=== PATIENT | female | born 1935 | race Caucasian/White ===

== ENCOUNTER 2017-01-29 09:41 | Emergency (ER) | payer OTHER ==
[2017-01-29] MEDS ORDERED: NS 1,000 ML IV ONE (09:53)
--- NOTE | 2017-01-29 09:56 | EDPHY ---
H & P Time Seen by Provider: 01/29/17 09:42 HPI/ROS: CHIEF COMPLAINT: Confusion HISTORY OF PRESENT ILLNESS: The patient is an 81-year-old female who comes from [facility] independent living. Around 4 o'clock in the morning she slid off of her bed and sustained a small bump to her head. Fire department responded. She was at her normal mental status and had no complaints at the time other complaining her bottom was sore from sitting on the ground for an hour. She was assisted back to bed and had no further complaints. This morning however staff and family feel the patient is less cheerful than usual and possibly confused. She was treated for urinary tract infection 2 months ago with Keflex but does not currently have any urinary symptoms. No nausea vomiting. No headache. The patient tells me she is asymptomatic. Paramedics state that she was A&O x4 for them but became somewhat flustered during transport which they attributed to anxiety. REVIEW OF SYSTEMS: Constitutional: denies: chills, fever, recent illness, recent injury EENTM: denies: blurred vision, double vision, nose congestion Respiratory: denies: cough, shortness of breath Cardiac: denies: chest pain, irregular heart rate, lightheadedness, palpitations Gastrointestinal/Abdominal: denies: abdominal pain, diarrhea, nausea, vomiting, blood streaked stools Genitourinary: denies: dysuria, frequency, hematuria, pain Musculoskeletal: denies: joint pain, muscle pain Skin: denies: lesions, rash, jaundice, bruising Neurological: See HPI denies: headache, numbness, paresthesia, tingling, dizziness, weakness Hematologic/Lymphatic: denies: blood clots, easy bleeding, easy bruising Immunologic/allergic: denies: HIV/AIDS, transplant EXAM: GENERAL: Well-appearing, well-nourished and in no acute distress. HEAD: Very small bump to the right side of her head. No bleeding or laceration. EYES: Pupils equal round and reactive to light, extraocular movements intact, sclera anicteric, conjunctiva are normal. ENT: TMs normal, nares patent, oropharynx clear without exudates. Moist mucous membranes. NECK: Normal range of motion, supple without lymphadenopathy or JVD. LUNGS: Breath sounds clear to auscultation bilaterally and equal. No wheezes rales or rhonchi. HEART: Regular rate and rhythm without murmurs, rubs or gallops. ABDOMEN: Soft, nontender, normoactive bowel sounds. No guarding, no rebound. No masses appreciated. BACK: No CVA tenderness, no spinal tenderness, step-offs or deformities EXTREMITIES: Normal range of motion, no pitting or edema. No clubbing or cyanosis. NEUROLOGICAL: Cranial nerves II through XII grossly intact. Normal speech, normal gait. 5/5 strength, normal movement in all extremities, normal sensation PSYCH: Normal mood, normal affect. SKIN: Warm, dry, normal turgor, no visible rashes or lesions. Source: Patient Exam Limitations: No limitations - Medical/Surgical History Hx Asthma: No Hx Chronic Respiratory Disease: No Hx Diabetes: No Hx Cardiac Disease: No Hx Renal Disease: No Hx Cirrhosis: No Hx Alcoholism: No - Family History Significant Family History: No pertinent family hx - Social History Smoking Status: Never smoked Alcohol Use: Sober Drug Use: None Constitutional: Initial Vital Signs Temperature (C) 36.7 C 01/29/17 09:50 Heart Rate 91 01/29/17 09:50 Respiratory Rate 16 01/29/17 09:50 Blood Pressure 144/70 H 01/29/17 09:50 O2 Sat (%) 94 01/29/17 09:50 O2 Delivery Mode Room Air O2 (L/minute) 2 Allergies/Adverse Reactions: adhesive Allergy (Verified 01/29/17 10:09) Home Medications: Medication Instructions Recorded SIMVASTATIN 01/29/17 Zoloft 100mg (*) 01/29/17 Medical Decision Making - Diagnostics Imaging Results: Imaging Impressions Head CT 01/29/17 09:54 Impression: 1. No acute intracranial findings. 2. Diffuse cerebral atrophy with periventricular and subcortical low attenuation consistent with chronic microvascular ischemic gliosis. Findings discussed with Sylvain Tran on 01/29/2017 at 10:37 a.m. Imaging: Discussed imaging studies w/ call center dispatcher Radiologist ED Course/Re-evaluation: 10:45 a.m. we discussed the CT and lab results thus far. Patient's son and daughter are at the bedside and state that she is acting normally and at baseline currently. We are awaiting urinary sample. According to the family the patient finished antibiotics for urinary tract infection last week. 12:12 p.m. the patient's urinalysis is unremarkable. She is feeling normal. Her family states she is baseline. Will discharge her at this time. Discussed indications for returning. Differential Diagnosis: Partial list of the Differential diagnosis considered include but were not limited to; urinary tract infection, fall, intracranial injury and although unlikely based on the history and physical exam, I also considered fracture, neck injury, acute coronary disease, seizure. I discussed these differential diagnoses and the plan with the patient as well as the usual and expected course. The patient understands that the diagnosis is provisional and that in medicine we are not always correct and that further workup is often warranted. Usual and customary warnings were given. All of the patient's questions were answered. The patient was instructed to return to the emergency department should the symptoms at all worsen or return, otherwise to followup with the physician as we discussed. - Data Points Laboratory Results: Laboratory Results 01/29/17 09:45 01/29/17 09:45 01/29/17 01/29/17 01/29/17 11:10 09:45 09:45 WBC 11.94 10^3/uL H 10^3/uL (3.80-9.50) RBC 4.68 10^6/uL 10^6/uL (4.18-5.33) Hgb 14.3 g/dL g/dL (12.6-16.3) Hct 42.8 % % (38.0-47.0) MCV 91.5 fL fL (81.5-99.8) MCH 30.6 pg pg (27.9-34.1) MCHC 33.4 g/dL g/dL (32.4-36.7) RDW 13.3 % % (11.5-15.2) Plt Count 297 10^3/uL 10^3/uL (150-400) MPV 9.4 fL fL (8.7-11.7) Neut % (Auto) 94.2 % H % (39.3-74.2) Lymph % (Auto) 2.3 % L % (15.0-45.0) Grant % (Auto) 2.9 % L % (4.5-13.0) Eos % (Auto) 0.1 % L % (0.6-7.6) Baso % (Auto) 0.1 % L % (0.3-1.7) Nucleat RBC Rel Count 0.0 % % (0.0-0.2) Absolute Neuts (auto) 11.25 10^3/uL H 10^3/uL (1.70-6.50) Absolute Lymphs (auto) 0.27 10^3/uL L 10^3/uL (1.00-3.00) Absolute Monos (auto) 0.35 10^3/uL 10^3/uL (0.30-0.80) Absolute Eos (auto) 0.01 10^3/uL L 10^3/uL (0.03-0.40) Absolute Basos (auto) 0.01 10^3/uL L 10^3/uL (0.02-0.10) Absolute Nucleated RBC 0.00 10^3/uL 10^3/uL (0-0.01) Immature Gran % 0.4 % % (0.0-1.1) Immature Gran # 0.05 10^3/uL 10^3/uL (0.00-0.10) Sodium 136 mEq/L mEq/L (134-144) Potassium 5.0 mEq/L mEq/L (3.5-5.2) Chloride 100 mEq/L mEq/L (97-110) Carbon Dioxide 24 mEq/l mEq/l (22-31) Anion Gap 12 mEq/L mEq/L (8-16) BUN 17 mg/dL mg/dL (7-23) Creatinine 0.8 mg/dL mg/dL (0.6-1.0) Estimated GFR > 60 Glucose 110 mg/dL H mg/dL (70-100) Calcium 9.9 mg/dL mg/dL (8.5-10.4) Total Bilirubin 0.7 mg/dL mg/dL (0.1-1.4) Conjugated Bilirubin 0.3 mg/dL mg/dL (0.0-0.5) Unconjugated Bilirubin 0.4 mg/dL mg/dL (0.0-1.1) AST 34 IU/L IU/L (14-46) ALT 35 IU/L IU/L (9-52) Alkaline Phosphatase 90 IU/L IU/L (38-126) Total Protein 7.6 g/dL g/dL (6.3-8.2) Albumin 4.5 g/dL g/dL (3.5-5.0) Specimen Hemolysis 102 Urine Color YELLOW Urine Appearance CLEAR Urine pH 6.0 (5.0-7.5) Ur Specific [place] 1.014 (1.002-1.030) Urine Protein NEGATIVE (NEGATIVE) Urine Ketones NEGATIVE (NEGATIVE) Urine Blood NEGATIVE (NEGATIVE) Urine Nitrate NEGATIVE (NEGATIVE) Urine Bilirubin NEGATIVE (NEGATIVE) Urine Urobilinogen NEGATIVE EU EU (0.2-1.0) Ur Leukocyte Esterase NEGATIVE (NEGATIVE) Urine RBC 1-3 /hpf /hpf (0-3) Urine WBC 1-3 /hpf /hpf (0-3) Ur Epithelial Cells NONE SEEN /lpf /lpf (NONE-1+) Hyaline Casts 1-5 /lpf /lpf (0-1) Urine Mucus TRACE /lpf /lpf (NONE-1+) Urine Glucose NEGATIVE (NEGATIVE) Ethyl Alcohol < 10 mg/dL mg/dL (0-10) Medications Given: Discontinued Medications Sodium Chloride (Ns) 1,000 mls @ 0 mls/hr IV ONCE ONE; Wide Open PRN Reason: Protocol Stop: 01/29/17 09:54 Last Admin: 01/29/17 10:02 Dose: 1,000 mls Departure - Departure Disposition: Home, Routine, Self-Care Clinical Impression: Fall from bed Qualifiers: Encounter type: initial encounter Qualified Code(s): W06.XXXA - Fall from bed, initial encounter Condition: Fair Instructions: Fall Prevention for Older Adults (ED) Referrals: BENITA PINEDA [Primary Care Provider] - As per Instructions
[2017-01-29 10:03] LABS: % IMMATURE GRANULYOCYTES 0.4 % (0.0-1.1); ABSOLUTE IMMATURE GRANULOCYTES 0.05 10^3/uL (0.00-0.10); ADD DIFF? NO; ADD MORPH? NO; ADD SCAN? NO; ATYPICAL LYMPHOCYTE FLAG 0 (0-99); FRAGMENT RBC FLAG 0 (0-99); HEMATOCRIT 42.8 % (38.0-47.0); HEMOGLOBIN 14.3 g/dL (12.6-16.3); LEFT SHIFT FLG 0 (0-99); LIPEMIA HEMOLYSIS FLAG 80 (0-99); MEAN CELL HEMOGLOBIN 30.6 pg (27.9-34.1); MEAN CELL HEMOGLOBIN CONCENTR. 33.4 g/dL (32.4-36.7); MEAN CELL VOLUME 91.5 fL (81.5-99.8); MEAN PLATELET VOLUME 9.4 fL (8.7-11.7); PLATELET CLUMPS FLAG 90 (0-99); PLATELET COUNT 297 10^3/uL (150-400); RED BLOOD CELL COUNT 4.68 10^6/uL (4.18-5.33); RED CELL DISTRIBUTION WIDTH 13.3 % (11.5-15.2)
[2017-01-29 10:11] LABS: ALANINE AMINOTRANSFERASE 35 IU/L (9-52); ALBUMIN 4.5 g/dL (3.5-5.0); ALKALINE PHOSPHATASE 90 IU/L (38-126); ANION GAP 12 mEq/L (8-16); ASPARTATE AMINOTRANSFERASE 34 IU/L (14-46); BILIRUBIN,TOTAL 0.7 mg/dL (0.1-1.4); BILIRUBIN-CONJUGATED 0.3 mg/dL (0.0-0.5); BILIRUBIN-UNCONJUGATED 0.4 mg/dL (0.0-1.1); CALCIUM 9.9 mg/dL (8.5-10.4); CARBON DIOXIDE 24 mEq/l (22-31); CHLORIDE 100 mEq/L (97-110); CREATININE 0.8 mg/dL (0.6-1.0); ETHANOL SERUM < 10 mg/dL (0-10); GLOMERULAR FILTRATION RATE > 60; GLUCOSE 110 mg/dL (70-100); SODIUM 136 mEq/L (134-144); SPECIMEN HEMOLYSIS 102; TOTAL PROTEIN 7.6 g/dL (6.3-8.2)
[2017-01-29 10:24] VITALS: RESP 16; TEMP 98.1
[2017-01-29 11:22] LABS: COLOR YELLOW; LEUKOCYTE ESTERASE,URINE NEGATIVE (NEGATIVE); NITRITE,URINE NEGATIVE (NEGATIVE)
[2017-01-29 11:27] LABS: MUCUS TRACE /lpf (NONE-1+)
[2017-01-29 12:36] VITALS: BP 172/96; PULSE 96; O2SAT 97
== END 2017-01-29 12:35 | disposition home or self-care (01) ==
LOC: EDUNIT#
DX: S09.90XA Unspecified injury of head, initial encounter (principal); E86.9 Volume depletion, unspecified; W06.XXXA Fall from bed, initial encounter
CPT/HCPCS: G0480

== ENCOUNTER 2017-03-28 10:10 | Inpatient (IN) | payer OTHER ==
--- NOTE | 2017-03-28 10:23 | EDPHY ---
H & P Time Seen by Provider: 03/28/17 10:22 - Medical/Surgical History Hx Asthma: No Hx Chronic Respiratory Disease: No Hx Diabetes: No Hx Cardiac Disease: No Hx Renal Disease: No Hx Cirrhosis: No Hx Alcoholism: No Hx HIV/AIDS: No Hx Splenectomy or Spleen Trauma: No Other PMH: asthma, COPD, hyperlipidemia, anxiety - Social History Smoking Status: Never smoked Constitutional: Initial Vital Signs Temperature (C) 36.7 C 03/28/17 10:31 Heart Rate 92 03/28/17 10:31 Respiratory Rate 18 03/28/17 10:31 Blood Pressure 106/52 L 03/28/17 10:31 O2 Sat (%) 94 03/28/17 10:31 O2 Delivery Mode Nasal Cannula O2 (L/minute) 3 Allergies/Adverse Reactions: acetaminophen [From Vicodin] Allergy (Verified 03/28/17 10:30) adhesive Allergy (Verified 01/29/17 10:09) hydrocodone [From Vicodin] Allergy (Verified 03/28/17 10:30) Home Medications: Medication Instructions Recorded SIMVASTATIN 01/29/17 Zoloft 100mg (*) 01/29/17 Medical Decision Making - Diagnostics Imaging Results: Imaging Impressions Head CT 03/28/17 10:24 Impression: 1. No acute fracture or intracranial hemorrhage. 2. Atrophy and extensive white matter disease unchanged since 2 months prior. 3. Mild left maxillary and ethmoid sinus disease. Findings discussed with Emergency Department physician, Jerod Mathew MD on 03/28 at 11:06 a.m. Imaging: Discussed imaging studies w/ leathersmith Radiologist, I viewed and interpreted images myself ED Course/Re-evaluation: CHIEF COMPLAINT: Syncope? recurrent falls HISTORY OF PRESENT ILLNESS: The patient is an 81 y/o female with COPD arriving for evaluation with her daughter after multiple falls in the last 24 hours. Yesterday around 11:00 her daughter noticed her O2 was not working, so she turned it on. Around 17:00 she fell, unclear if mechanical or not. There was no clear loss of consciousness or trauma from this. She had at least two more falls this morning that sound syncopal in nature while sitting on the couch with subsequent vomiting. She struck the back of her head this morning. No report of recent infectious symptoms. REVIEW OF SYSTEMS: A 10 point review of systems was performed and is negative with the exception of the elements mentioned in the history of present illness. PHYSICAL EXAM: HR, BP, O2 Sat, RR. Temp noted General Appearance: Alert, well hydrated, appropriate, and non-toxic appearing. Head: Occipital hematoma Eyes: Pupils equal, round, reactive to light and accommodation, EOMI, no trauma , no injection. Ears: Clear bilaterally, no perforation, normal landmarks Nose: Atraumatic, no rhinorrhea, clear. Throat: There is no erythema or exudates, no lesions, normal tonsils, mucus membranes dry. Neck: Supple, nontender, no lymphadenopathy. Respiratory: No retractions, no distress, no wheezes, and no accessory muscle use. Lungs are clear to auscultation bilaterally. Cardiovascular: Regular rate and rhythm, no murmurs, rubs, or gallops. Good capillary refill all extremities. Gastrointestinal: Abdomen is soft, nontender, non-distended, no masses, no rebound, no guarding, no peritoneal signs. Musculoskeletal: Normal active ROM of all extremities, Ecchymosis and tenderness to both shoulders. Neurological: Alert, appropriate, and interactive. The patient has non-focal cranial nerves, motor, sensory, and cerebellar exam. Skin: No rashes, good turgor, no nodules on palpation. Past medical history: asthma, COPD - O2, hyperlipidemia, anxiety, depression after - on Zoloft. Past surgical history: Denies Family history: Noncontributory Social history: Lives at [facility]. 6 months ago. Daughter involved in care. DIAGNOSTICS/PROCEDURES/CRITICAL CARE TIME: Head CT negative. The 12 lead EKG was interpreted by myself. Sinus mechanism. See hard copy and/ or "tracemaster" electronic copy for interpretation. DIFFERENTIAL DIAGNOSIS: The differential diagnosis for the patient's syncope included but was not limited to vasovagal syncope, arrhythmia, dehydration, cardiogenic causes, neurogenic causes, and blood loss. The differential diagnosis for the patient's head injury included but was not limited to concussion, skull fracture, intra-parenchymal contusion, subarachnoid , subdural and epidural hematoma. MEDICAL DECISION MAKING: This is an 81 y/o female arriving with her daughter for evaluation of frequent falls and possible syncope over the last 24 hours. She has an occipital hematoma and normal neuro exam. Presentation could represent several etiologies including sick sinus syndrome or arrhythmia resulting in syncope, dehydration and hypotension, and gait instability among other causes. Plan for IV, labs, EKG , head CT, and UA. Labs, EKG, head CT unremarkable. Urine sample pending straight cath. Spoke with hospitalist service. Dr. House accepts admission to PCU. - Data Points Laboratory Results: Laboratory Results 03/28/17 10:30 03/28/17 10:30 03/28/17 03/28/17 03/28/17 10:30 10:30 10:30 WBC 10.48 10^3/uL H 10^3/uL (3.80-9.50) RBC 5.27 10^6/uL 10^6/uL (4.18-5.33) Hgb 15.1 g/dL g/dL (12.6-16.3) Hct 45.6 % % (38.0-47.0) MCV 86.5 fL fL (81.5-99.8) MCH 28.7 pg pg (27.9-34.1) MCHC 33.1 g/dL g/dL (32.4-36.7) RDW 14.5 % % (11.5-15.2) Plt Count 203 10^3/uL 10^3/uL (150-400) MPV 10.3 fL fL (8.7-11.7) Neut % (Auto) 83.1 % H % (39.3-74.2) Lymph % (Auto) 5.0 % L % (15.0-45.0) [place] % (Auto) 11.1 % % (4.5-13.0) Eos % (Auto) 0.0 % L % (0.6-7.6) Baso % (Auto) 0.2 % L % (0.3-1.7) Nucleat RBC Rel Count 0.0 % % (0.0-0.2) Absolute Neuts (auto) 8.72 10^3/uL H 10^3/uL (1.70-6.50) Absolute Lymphs (auto) 0.52 10^3/uL L 10^3/uL (1.00-3.00) Absolute Monos (auto) 1.16 10^3/uL H 10^3/uL (0.30-0.80) Absolute Eos (auto) 0.00 10^3/uL L 10^3/uL (0.03-0.40) Absolute Basos (auto) 0.02 10^3/uL 10^3/uL (0.02-0.10) Absolute Nucleated RBC 0.00 10^3/uL 10^3/uL (0-0.01) Immature Gran % 0.6 % % (0.0-1.1) Immature Gran # 0.06 10^3/uL 10^3/uL (0.00-0.10) PT 12.6 SEC SEC (12.0-15.0) INR 0.92 (0.83-1.16) APTT 27.5 SEC SEC (23.0-38.0) Sodium 136 mEq/L mEq/L (135-145) Potassium 4.1 mEq/L mEq/L (3.5-5.2) Chloride 98 mEq/L mEq/L (97-110) Carbon Dioxide 23 mEq/l mEq/l (22-31) Anion Gap 15 mEq/L mEq/L (8-16) BUN 21 mg/dL mg/dL (7-23) Creatinine 1.0 mg/dL mg/dL (0.6-1.0) Estimated GFR 53 Glucose 123 mg/dL H mg/dL (70-100) Calcium 10.0 mg/dL mg/dL (8.5-10.4) Medications Given: Discontinued Medications Sodium Chloride (Ns) 1,000 mls @ 0 mls/hr IV ONCE ONE PRN Reason: Wide Open Stop: 03/28/17 12:16 Last Admin: 03/28/17 12:17 Dose: 1,000 mls Departure - Departure Disposition: [facility] Inpatient Acute Clinical Impression: Multiple falls Syncope Qualifiers: Syncope type: unspecified Qualified Code(s): R55 - Syncope and collapse Hematoma of occipital surface of head Qualifiers: Encounter type: initial encounter Qualified Code(s): S00.83XA - Contusion of other part of head, initial encounter Condition: Fair Referrals: Patient,NotPresent [Unknown] - As per Instructions Report Scribed for: Jerod Mathew Report Scribed by: Elina Barney Date of Report: 03/28/17 Time of Report: 12:30
--- NOTE | 2017-03-28 10:26 | CPEKG ---
Heart Rate: 79 RR Interval: 759 P-R Interval: 144 QRSD Interval: 82 QT Interval: 436 QTC Interval: 500 P Frost: 48 QRS Frost: 68 T Wave Frost: 75 EKG Severity - ABNORMAL ECG - EKG Impression: SINUS RHYTHM EKG Impression: NONSPECIFIC T ABNORMALITIES, LATERAL LEADS EKG Impression: BORDERLINE PROLONGED QT INTERVAL Electronically Signed By: Jerod Mathew 28-Mar-2017 14:55:20
[2017-03-28 10:41] LABS: PLATELET COUNT 203 10^3/uL (150-400)
[2017-03-28 10:49] LABS: INR 0.92 (0.83-1.16); PROTIME(PATIENT) 12.6 SEC (12.0-15.0)
--- NOTE | 2017-03-28 11:58 | ASMTLACE ---
HAMIDA Acuity / Level of Answers: Yes Care: Did the patient have an inpatient admission? Comorbidities - select Answers: Chronic pulmonary disease all that apply History of falls # of Emergency department Answers: 1-2 visits in the last 6 months Score: 9 Date Signed: 03/28/2017 11:57 AM Electronically Signed By:Tessie Antony RN
[2017-03-28] MEDS ORDERED: ONDANSETRON DISINTEGRATING 4 MG TAB PO PRN (12:09)
[2017-03-28] MEDS ORDERED: ONDANSETRON 4 MG/2 ML VIAL IVP PRN (12:09)
[2017-03-28] MEDS ORDERED: NS 1,000 ML IV ONE (12:15)
--- NOTE | 2017-03-28 14:44 | PDGENHP ---
History and Physical - Chief Complaint fall - History of Present Illness The patient is an 81 y/o female with COPD p/w multiple falls in the last 24 hours. she says that she walks and falls. Doesn't have any sx's prior to the fall. No CP or SOB, no palpitations. Other than the fall since yesterday, she has been feeling well. No fever, URI sx's, no cough, no urinary sx's, denies dizziness. She reports that other than a HAY from hitting her head and back pain , she feels fine. She is chronically on 3 LO2 and she is on this. NO LOC. She hit her head this morning. In the E.D, CT brain unremarkable. EKG with mild prolonged QT Past medical history: asthma, COPD - O2, hyperlipidemia, anxiety, depression after - on Zoloft. Past surgical history: Denies Family history: Noncontributory Social history: Lives at [facility]. 6 months ago. Daughter involved in care. Studies/labs: mild leukocytosis EKG and Head CT per above History Information - Allergies/Home Medication List Allergies/Adverse Reactions: acetaminophen [From Vicodin] Allergy (Verified 03/28/17 10:30) adhesive Allergy (Verified 01/29/17 10:09) hydrocodone [From Vicodin] Allergy (Verified 03/28/17 10:30) Home Medications: Sertraline HCl [Zoloft 25mg (*)] 25 mg PO DAILY 01/29/17 [Last Taken 03/27/17] Simvastatin [Zocor] 20 mg PO DAILY@17 01/29/17 [Last Taken 03/27/17] I have personally reviewed and updated: medical history, social history - Social History Smoking Status: Never smoked Review of Systems Review of Systems: ROS: 10pt was reviewed & negative except for what was stated in HPI & below Physical Exam Physical Exam: Temp Pulse Resp BP Pulse Ox 36.4 C 85 16 104/59 L 94 03/28/17 13:23 03/28/17 13:23 03/28/17 13:23 03/28/17 13:23 03/28/17 13:23 O2 (L/minute) 3 Constitutional: no apparent distress Eyes: PERRL, EOMI Ears, Nose, Mouth, Throat: moist mucous membranes Cardiovascular: regular rate and rhythym, No edema Respiratory: no respiratory distress, reduced air movement Gastrointestinal: normoactive bowel sounds, soft, non-tender abdomen Genitourinary: no bladder fullness Skin: warm Musculoskeletal: No generalized weakness Psychiatric: interacting appropriately, not anxious, not encephalopathic Lymph, Heme, Immunologic: No petechiae Lab Data & Imaging Review 03/28/17 10:30 03/28/17 10:30 WBC 10.48 10^3/uL (3.80-9.50) H 03/28/17 10:30 RBC 5.27 10^6/uL (4.18-5.33) 03/28/17 10:30 Hgb 15.1 g/dL (12.6-16.3) 03/28/17 10:30 Hct 45.6 % (38.0-47.0) 03/28/17 10:30 MCV 86.5 fL (81.5-99.8) 03/28/17 10:30 MCH 28.7 pg (27.9-34.1) 03/28/17 10:30 MCHC 33.1 g/dL (32.4-36.7) 03/28/17 10:30 RDW 14.5 % (11.5-15.2) 03/28/17 10:30 Plt Count 203 10^3/uL (150-400) 03/28/17 10:30 MPV 10.3 fL (8.7-11.7) 03/28/17 10:30 Neut % (Auto) 83.1 % (39.3-74.2) H 03/28/17 10:30 Lymph % (Auto) 5.0 % (15.0-45.0) L 03/28/17 10:30 Carbon % (Auto) 11.1 % (4.5-13.0) 03/28/17 10:30 Eos % (Auto) 0.0 % (0.6-7.6) L 03/28/17 10:30 Baso % (Auto) 0.2 % (0.3-1.7) L 03/28/17 10:30 Nucleat RBC Rel Count 0.0 % (0.0-0.2) 03/28/17 10:30 Absolute Neuts (auto) 8.72 10^3/uL (1.70-6.50) H 03/28/17 10:30 Absolute Lymphs (auto) 0.52 10^3/uL (1.00-3.00) L 03/28/17 10:30 Absolute Monos (auto) 1.16 10^3/uL (0.30-0.80) H 03/28/17 10:30 Absolute Eos (auto) 0.00 10^3/uL (0.03-0.40) L 03/28/17 10:30 Absolute Basos (auto) 0.02 10^3/uL (0.02-0.10) 03/28/17 10:30 Absolute Nucleated RBC 0.00 10^3/uL (0-0.01) 03/28/17 10:30 Immature Gran % 0.6 % (0.0-1.1) 03/28/17 10:30 Immature Gran # 0.06 10^3/uL (0.00-0.10) 03/28/17 10:30 PT 12.6 SEC (12.0-15.0) 03/28/17 10:30 INR 0.92 (0.83-1.16) 03/28/17 10:30 APTT 27.5 SEC (23.0-38.0) 03/28/17 10:30 Sodium 136 mEq/L (135-145) 03/28/17 10:30 Potassium 4.1 mEq/L (3.5-5.2) 03/28/17 10:30 Chloride 98 mEq/L (97-110) 03/28/17 10:30 Carbon Dioxide 23 mEq/l (22-31) 03/28/17 10:30 Anion Gap 15 mEq/L (8-16) 03/28/17 10:30 BUN 21 mg/dL (7-23) 03/28/17 10:30 Creatinine 1.0 mg/dL (0.6-1.0) 03/28/17 10:30 Estimated GFR 53 03/28/17 10:30 Glucose 123 mg/dL (70-100) H 03/28/17 10:30 Calcium 10.0 mg/dL (8.5-10.4) 03/28/17 10:30 Assessment & Plan Assessment: #Syncope, etiology unclear #Multiple falls #Hematoma of occipital surface of head #generalized weakness #chronic resp failure #COPD #prolonged QT #back pain #Leukocytosis Plan: Observation telemetry TTE avoid meds prolonging QT Lumbar and thoracic imaging to r/o fx SCD's DNR
[2017-03-28] MEDS: ATORVASTATIN CALCIUM 10 MG TAB PO SCH (15:18)
--- NOTE | 2017-03-28 15:35 | ECHO ---
[email or web address] [address] [address] Main: [phone] Fax: Transthoracic Echocardiogram Name: SHANNEN NAIK MR#: [id number] Study Date: 03/28/2017 Study Time: 01:44 PM Date of : 1935 Age: 81 year(s) Height: 160 cm (63 in.) Weight: 54.43 kg (120 lb.) BSA: 1.56 m2 Gender: Female Examination: Echo Indication: Cardiac: syncope Image Quality: Adequate Contrast: Requested by: Ishan House BP: 104 mmHg/59 mmHg Heart Rate: Rhythm: Normal sinus rhythm Indication: Cardiac: syncope Procedure Staff Burrer Marker Axle: Lorrie Daniels [facility] Reading Physician: Brenden Solares Requesting Provider: Conclusions: Hyperdynamic left ventricular systolic function with an ejection fraction above 70%. Normal left ventricular wall motion. Grade 1 diastolic dysfunction. Evidence of basal septal hypertrophy with systolic anterior motion predominantly of the chordae tendineae of the mitral valve. This is associated with a dynamic left ventricular outflow tract gradient of up to 120 mmHg post Valsalva. Additionally, there is an increase in the degree of mitral valve regurgitation post Valsalva from mild to moderate. There is trivial tricuspid regurgitation. The TR jet is insufficient to estimate the RVSP. Physiologic pericardial effusion. Measurements: Chambers Valvular Assessment AV/MV Valvular Assessment TV/PV Normal Normal Normal Name Value Range Name Value Range Name Value Range Ao Beti (MM): 2.9 cm (2.2 cm-3.7 AV Vmax: 2.29 m/s (1 m/s-1.7 PV Vmax: 0.73 m/s (0.6 m/s-0.9 cm) m/s) m/s) IVSd (2D): 1.4 cm (0.6 cm-1.1 AV maxP mmHg ( - ) PV PGmax: 2 mmHg ( - ) cm) LVOT Vmax: 2.16 m/s (0.7 m/s-1.1 LVDd (2D): 3.1 cm (3.9 cm-5.3 m/s) cm) MV E Vmax: 0.67 m/s ( - ) LVDs (2D): 2.0 cm (2.1 cm-4 MV A Vmax: 0.91 m/s ( - ) cm) MV E/A: 0.74 ( - ) LVPWd (2D): 0.9 cm ( - ) LVEF (BP): 74 % (>=55 %) RVDd(2D): 2.4 cm (1.9 cm-3.8 cmmm) Continued Measurements: Chambers Valvular Assessment AV/MV Name Value Name Value LADs: 1.9 cm MV DecTime: 292 m/s Patient: SHANNEN NAIK Study Date: 03/28/2017 Page 1 of 2 01:44 PM LADs Lon.8 cm MV E/E' Septal: 10.80 LA Area: 11.5 cm2 MV E/E' Lateral: 8.50 LA Volume: 24 ml LA Volume Index: 15.4 ml/m2 RA Area: 11.1 cm2 Additional Vessels Name Value Ao Ascendin.7 cm Findings: Left Ventricle: The left ventricle cavity is small. Asymmetrical septal LV hypertrophy. SOL present. Global hypercontractility of the left ventricle. EF is 74 %. No regional wall motion abnormality. Grade 1 diastolic dysfunction (abnormal relaxation). There is a LVOT gradient due to either SOL and/or chordeal SOL. The gradient throughout the LVOT at rest is 26mmHg and with valsalva manuever it increases to at least 121 mmHg,. Right Ventricle: Normal size right ventricle. Normal RV function. Left Atrium: The left atrium is normal in size. Right Atrium: The right atrium is normal in size. Mitral Valve: No mitral stenosis is present. SOL present. Mild mitral regurgitation at rest and moderate to severe with valsalva manuever. . Aortic Valve: The aortic valve is tri-leaflet and functions normally. There is no aortic valve regurgitation. No aortic valve stenosis is present. Tricuspid Valve: The tricuspid valve is normal in appearance and function. Trivial tricuspid valve regurgitation. Pulmonary artery pressure is not obtained due to inadequate TR jet. Pulmonic Valve: The pulmonic valve is normal in appearance and function. There is no pulmonic regurgitation seen. Aorta: Normal size aortic root measuring 2.9 cm. Normal size ascending aorta measuring 2.7 cm. Pericardium: No pericardial effusion. (No Signature Object) Patient: SHANNEN NAIK Study Date: 03/28/2017 Page 2 of 2 01:44 PM [id number]
--- NOTE | 2017-03-28 16:40 | ASMTCMCOM ---
CM Note CM Note Notes: 03/28/2017 Case Management Note Reviewed chart, spoke w/daughter oNrma [phone]. PT is recommending SNF rehab, Norma is in agreement. Pt has significant dementia. Called [facility] at [phone], [facility] recommended the [facility] dedicated to care for dementia patients. Family specifically requested that referals not be sent to [facility] facilities. Faxed referrals to multiple facilities via [employer]. Case Management d/c poc: to SNF pending acceptance. Case Management to follow. Date Signed: 03/28/2017 04:39 PM Electronically Signed By:Lisbeth Kaur RN
[2017-03-29 04:17] LABS: PLATELET COUNT 179 10^3/uL (150-400)
[2017-03-29] MEDS: ATORVASTATIN CALCIUM 10 MG TAB PO SCH (09:31)
[2017-03-29] MEDS: SERTRALINE HCL 25 MG TAB PO SCH (09:31)
[2017-03-29] MEDS: CEPHALEXIN 500 MG CAP PO SCH ×2 (11:38→22:03)
[2017-03-29] MEDS ORDERED: ACETAMINOPHEN 650 MG/20.3 ML UDCUP PO PRN (12:08)
--- NOTE | 2017-03-29 12:08 | HOSPPROG ---
Hospitalist Progress Note Assessment/Plan: #Syncope, etiology unclear #Multiple falls #Hematoma of occipital surface of head #Acute vs chronic L2 compression fracture and back pain #generalized weakness #chronic resp failure #COPD #prolonged QT #Leukocytosis (resolved) and UTI #Dementia Plan: No e/o on tele. No further syncope or falls Lumbar XR shows L2 compression fracture, unclear chronicity Start Keflex telemetry TTE avoid meds prolonging QT MRI lumbar back. Per CM, if she needs a Kyphoplasty, she may require transfer via [facility] PT/OT SCD's DNR Subjective: Still with back pain. no further falls. Objective: Vital Signs Temp Pulse Resp BP Pulse Ox 37.2 C 89 12 115/53 L 92 03/29/17 11:31 03/29/17 11:31 03/29/17 11:31 03/29/17 11:31 03/29/17 11:31 Laboratory Results 03/29/17 03:20 03/29/17 03:20 03/28/17 03/29/17 03/30/17 05:59 05:59 05:59 Intake Total 620 Output Total 450 100 Balance 170 -100 PT 12.6 SEC (12.0-15.0) 03/28/17 10:30 INR 0.92 (0.83-1.16) 03/28/17 10:30 - Physical Exam Constitutional: no apparent distress Eyes: PERRL, EOMI Ears, Nose, Mouth, Throat: moist mucous membranes, hearing normal Cardiovascular: regular rate and rhythym Respiratory: no respiratory distress, reduced air movement Gastrointestinal: normoactive bowel sounds, soft, non-tender abdomen Genitourinary: no bladder fullness Skin: warm Musculoskeletal: generalized weakness Neurologic: AAOx3 Psychiatric: interacting appropriately, not anxious, not encephalopathic ICD10 Worksheet Patient Problems: Problems Problem Status Onset Hematoma of occipital surface of head Acute Multiple falls Acute Syncope Acute
[2017-03-29] MEDS ORDERED: LORazepam 0.5 MG TAB PO ONE (13:45)
--- NOTE | 2017-03-29 14:14 | PDMN ---
Medical Necessity Medical necessity: C/M review: patient meets INPT criteria under [facility] M-340 Syncope, Neurology GRG (Muscle weakness, generalized): Acute - syncope of unclear etiology, hematoma on occipital surface of head, acute versus chronic L2 compression fracture, leukocytosis (resolved), WBC 10.48, 7.48, 03/29/2017 CO2 21, AST 81, ALT 53, acute and persistent - back pain, generalized weakness , prolonged OT urinary tract infection, requiring planned 03/29/2017 lumbar sine MRI, ongoing initiation of oral Keflex, cardiac monitoring, pulse oximetry, supplemental O2, acute inpt PT/OT, comorbid multiple falls prior to this admission, chronic respiratory failure, COPD, dementia. MD anticipates > 2 MN LOS for ongoing med nec for eval and TX of above. Patient is Medicare Advantage which follows guidelines [facility] puts forth.
[2017-03-29] MEDS: IBUPROFEN 200 MG TAB PO PRN (17:19)
[2017-03-30] MEDS: IBUPROFEN 200 MG TAB PO PRN ×3 (04:15→17:37)
[2017-03-30] MEDS: ATORVASTATIN CALCIUM 10 MG TAB PO SCH (10:28)
[2017-03-30] MEDS: CEPHALEXIN 500 MG CAP PO SCH ×2 (10:28→20:07)
[2017-03-30] MEDS: SERTRALINE HCL 25 MG TAB PO SCH (10:29)
--- NOTE | 2017-03-30 12:23 | HOSPPROG ---
Hospitalist Progress Note Assessment/Plan: #Syncope, etiology unclear #Multiple falls #Hematoma of occipital surface of head #Acute vs chronic L2 compression fracture and back pain -MRI did not show e/o acute compression fx #Significant degenerative disc disease with central canal stenosis from L1-S1 #generalized weakness #chronic resp failure #COPD #prolonged QT #Leukocytosis (resolved) and UTI #Dementia Plan: -Met with the pt's son. He does not report chronic back pain. Her back pain is better today and MRI is negative for acute fracture. Will cont with pain mgmt and PT -Cont Keflex -telemetry -avoid meds prolonging QT -Pain mgmt, ibuprofen, low dose -PT/OT -SCD's -DNR Will likely d/c tomorrow back to memory unit with home health Subjective: back pain is better. no O/V events. Pt's son present at bedside and we had a long discussion. She has not been c/o back pain at baseline. Objective: Vital Signs Temp Pulse Resp BP Pulse Ox 36.5 C 75 20 121/63 H 96 03/30/17 11:16 03/30/17 11:16 03/30/17 11:16 03/30/17 11:16 03/30/17 11:16 03/29/17 03/30/17 03/31/17 05:59 05:59 05:59 Intake Total 700 Output Total 165 Balance 535 PT 12.6 SEC (12.0-15.0) 03/28/17 10:30 INR 0.92 (0.83-1.16) 03/28/17 10:30 - Physical Exam Constitutional: no apparent distress Eyes: PERRL, EOMI Ears, Nose, Mouth, Throat: moist mucous membranes, hearing normal Cardiovascular: regular rate and rhythym, no murmur, rub, or gallop Respiratory: no respiratory distress, no rales or rhonchi Gastrointestinal: normoactive bowel sounds Skin: warm Musculoskeletal: generalized weakness Neurologic: No AAOx3 Psychiatric: encephalopathic Lymph, Heme, Immunologic: No petechiae ICD10 Worksheet Patient Problems: Problems Problem Status Onset Hematoma of occipital surface of head Acute Multiple falls Acute Syncope Acute
--- NOTE | 2017-03-30 14:37 | ASMTCMCOM ---
CM Note CM Note Notes: Spoke with RN & MD; anticipate dc tomorrow. Spoke with pt & her son Ulysses regarding dc poc. Discussed pt discharging to SNF vs discharging back to [facility] w/[facility]. Ulysses had several questions about the facilities referrals were sent to; called each facilty to discuss. Spoke with Lisa, at [facility]; bed available tomorrow in their memory care unit; [facility] does PT/OT with their pts daily & are able to check in on their pts every 15 mins; Lisa encouraging this CM to call Scotty ([phone] or [phone]) at [facility] weekend line to get auth for pt; updated Ulysses. Ulysses to discuss with his sister Norma before getting auth. Spoke with Teresita at [facility]; [facility] bed available tomorrow w/auth; no memory care unit, but Teresita willing to speak with DON & request a bed for pt near nurse's station w/frequent checks on pt; PT/OT done 3x times daily, if pt can tolerate. Spoke with Tracie, at [facility]; no [facility] beds available until Friday. LVM for Lisbet at [facility]; awaiting callback. Spoke with [facility] who states they would be able to see pt at [facility] & provide max amount of therapy (3x weekly) for pt if [facility] PT order recommends that. Ulysses updated; decision made for pt to dc to [facility]. LVM for Scotty, at [facility], to obtain auth. Alerted Lisa at [facility]; updates faxed; confirmed received; willing to accept pt if auth is obtained; Lisa to contact [facility] as well. CM will continue to follow. Date Signed: 03/30/2017 02:36 PM Electronically Signed By:Christie Gray RN
[2017-03-31] MEDS: IBUPROFEN 200 MG TAB PO PRN ×2 (10:04→19:37)
[2017-03-31] MEDS: CEPHALEXIN 500 MG CAP PO SCH ×2 (10:05→19:37)
[2017-03-31] MEDS: SERTRALINE HCL 25 MG TAB PO SCH (10:05)
[2017-03-31] MEDS: ATORVASTATIN CALCIUM 10 MG TAB PO SCH (10:05)
--- NOTE | 2017-03-31 12:14 | ASMTCMCOM ---
CM Note CM Note Notes: 03/31/2017 Case Management Note Priscilla from [facility] notified case management of approval and authorization from [facility]. Case Management to call Priscilla at [phone] when d/c orders are completed. Case Management d/c poc: To [facility] for rehab when medically stable. Case Management to follow. Date Signed: 03/31/2017 12:14 PM Electronically Signed By:Lisbeth Kaur RN
[2017-03-31] MEDS ORDERED: traMADol 50 MG TAB PO PRN (17:10)
[2017-03-31] MEDS ORDERED: ONDANSETRON 4 MG/2 ML VIAL IVP PRN (17:10)
[2017-03-31] MEDS ORDERED: ACETAMINOPHEN 325 MG TAB PO PRN (17:11)
--- NOTE | 2017-03-31 17:15 | HOSPPROG ---
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 Aguilar * COPD - chronic O2 2L * Dementia * UTI -keflex Subjective: Still with back pain Objective: Vital Signs Temp Pulse Resp BP Pulse Ox 36.7 C 80 20 165/89 H 93 03/31/17 15:38 03/31/17 15:38 03/31/17 15:38 03/31/17 15:38 03/31/17 15:38 03/30/17 03/31/17 04/01/17 05:59 05:59 05:59 Intake Total 700 1470 300 Output Total 165 200 Balance 535 1470 100 PT 12.6 SEC (12.0-15.0) 03/28/17 10:30 INR 0.92 (0.83-1.16) 03/28/17 10:30 MRI Lspine - severe spinal stenosis with central disk herniation Laboratory Tests 03/28/17 18:00 Ur Leukocyte Esterase 1+ H Urine WBC 5-10 H Urine Bacteria 1+ H Hyaline Casts 25-50 H - Physical Exam Constitutional: no apparent distress, appears nourished, not in pain Cardiovascular: regular rate and rhythym, no murmur, rub, or gallop Respiratory: no respiratory distress, no rales or rhonchi, clear to auscultation Gastrointestinal: normoactive bowel sounds, soft, non-tender abdomen, no palpable masses Skin: no rashes or abrasions, no fluctuance, no induration Psychiatric: encephalopathic, anxious, agitated, poor insight, poor judgement, poor memory ICD10 Worksheet Patient Problems: Problems Problem Status Onset Multiple falls Acute Syncope Acute Hematoma of occipital surface of head Acute
--- NOTE | 2017-03-31 17:34 | GCON ---
[f rep st] CONSULTATION TIME SEEN: The patient was seen in room 204 at [facility] on 03/31/2017, at 1445 in th e afternoon. CHIEF COMPLAINT: Low back pain with multiple falls. HISTORY OF PRESENT ILLNESS: The patient is an 81-year-old female who was admitted to [facility] with a history of COPD and multiple falls. The patient has had multiple falls over the 24 hours. She says that when she walks, she has had some instability in her feet and fell as a re sult. She does not have any symptoms prior to her falls. She denies any chest pain, no headache, no neck pain. No shortness of breath. No abdominal complaints. Currently, she has thoracic and lumba r spine pain. Internal Medicine had seen the patient, ordered an MRI of the lumbar spine which shows severe stenosis at L3-4 and right-sided foraminal stenosis at L5-S1 with degenerative disk changes n oted throughout her lumbar spine. There appears to be an old L1 compression fracture, as well. She also has thoracic spine pain. She denies any other symptoms such as fever, URI symptoms, no cough or dizziness. She denies any upper extremity or lower extremity symptoms such as numbness, tingling, w eakness or pain. She is chronically on 3 L of oxygen. She had a CT scan of the head, which was unremarkable. An EKG with mild prolonged QT. PAST MEDICAL HISTORY: Significant for the followin. Asthma. 2. COPD, oxygen dependent. 3. Hyperlipidemia. 4. Anxiety. 5. 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 PAST SURGICAL HISTORY: Denies. FAMILY HISTORY: Reviewed and noncontributory. MEDICATIONS: Please see med rec form. ALLERGIES: To Vicodin, adhesive, Tylenol. IMMUNIZATIONS: Reported up to date. TRAVEL: No recent travel. SOCIAL HISTORY: Patient is a , 81-year-old female lives in [place]. Her daughter is at her b edside, and I also spoke with her son via phone. REVIEW OF SYSTEMS: Complete 10-point review of systems was negative, otherwise as noted in HPI. PHYSICAL EXAMINATION: GENERAL: This is an awake, alert, oriented female in no acute distress. She is able to follow commands appropriately. VITAL SIGNS: Most recent blood pressure 125/55 with a MAP of 78, heart rate of 82, respirations 16, 93% on 3 L, and temperature 36.6. HEENT: Head is normoce phalic, atraumatic. Pupils are equal, round, reactive to light. EOMs intact. Full visual thrasher by confrontation. Ears are patent. Nose is patent. SPINE: Neck is soft and supple. No midline tend erness. Full range of motion in flexion, extension, lateral bending, rotation. The patient does hav e midline thoracic and lumbar spine tenderness, especially with fist percussion to the thoracic spine and lumbar spine. RESPIRATORY: Deferred. CARDIAC: Deferred. ABDOMEN: Soft, nontender. No grant toneal signs. /RECTAL: Deferred. NEURO: Patient is awake, alert, oriented to name, place, locat ion, date, time, and situation. Memory is intact to immediate, past, and current events. Speech wit h no aphasia, dysarthria, dysphonia. Cranial nerves 2-12 grossly intact. Motor: Patient has 5/5 st rength in all muscle groups of the bilateral upper and lower extremities to include deltoids, biceps, triceps, brachioradialis, wrist flexion and extensors, security advisor, intrinsic fingers, iliopsoas, quadricep s, hamstring, plantar flexion, dorsiflexion, EHL testing. Sensation grossly intact to light touch th roughout all dermatome distributions, upper and lower extremities. Negative straight-leg raise. Neg ative ADARSH test. Reflexes in the biceps, triceps, brachioradialis, knee jerk and ankle jerk 2+/4. Toes are downgoing bilaterally. Hui's negative. Babinski negative. No evidence of clonus. MEDICAL DECISION MAKING: LABORATORY STUDIES: Laboratory tests obtained 03/29/2017, show a white cou nt of 7.48 with an H and H of 13.9 and 41.7, with a platelet count of 179. Coags on 03/28/2017, show a PT of 12.6, INR 0.92, and PTT of 27.5. Chemistry on 03/29/2017, shows a sodium 136, potassium 3.7 , chloride 104, CO2 21, BUN 21, creatinine 0.8, and a glucose of 87. C diff was negative. DIAGNOSTIC STUDIES: CT scan of the head obtained 03/28/2017, shows no acute fracture or intracranial hemorrhage. There is atrophy and extensive white matter changes. Mild left maxillary and ethmoid s inus disease was noted. X-rays of the thoracic spine 03/28/2017, as well as x-rays of the lumbar spine shows moderate L2 comp ression fracture of unknown age; by MRI, this does not appear acute. No acute fracture noted in the thoracic spine. MRI lumbar spine 03/29/2017, shows L3-4 severe central canal stenosis secondary to severe bilateral f acet arthropathy. There is central disk herniation L5-S1. There is moderate to severe bilateral tamiko ral foraminal stenosis, right worse than the left secondary to severe degenerative disk changes. The re is a grade 1 anterolisthesis noted at L2-3. There is moderate central canal stenosis, left neural foraminal stenosis, severe degenerative changes. L1 shows an old moderate compression wedge deformi ty noted. Pending MRI of the thoracic spine. IMPRESSION: 1. Syncope, unclear etiology. 2. Multiple falls. 3. Generalized weakness. 4. History of chronic obstructive pulmonary disease, prolonged QT. 5. Back pain with old compression fracture of L1, with severe stenosis at L3-4, on the right side at L5-S1. 6. Thoracic spine pain with pending MRI of thoracic spine. PLAN/DISCUSSION: The patient is an 81-year-old female who [facility]. We were consulted for thoracic and lumbar spine pain. She had an MRI of her lumbar spine which showed an old compression fracture of L1, some central stenosis at L3-4, and most severe stenosis on the right side at L5-S1. Shows overall degenerative changes noted throughout her lumbar spine. Due to the thoracic pain that she is having, an MRI of thoracic spine was ordered despite x-rays that ap pear to show no acute fracture. Will confirm this with an MRI. I spoke with her daughter as well as her son, and reviewed the images and plan with him. I also spok e with Dr. Sweeney, who will see the patient later this afternoon. I reviewed the imaging and finaliz ed the plan. The patient understands and agrees, as does family. /[id number]/MODL
--- NOTE | 2017-04-01 06:37 | NEUSURGPN ---
Assessment/Plan: Assessment: 81 yo female admitted to with syncope and T/L spine pain Plan: -T spine is better this am. MRI of the T spine shows DDD with noted old T8/T9 compression fractures, no acute fractures noted. We will continue to watch the T spine at this time. -L spine pain is the dominant pain that she has at this point-MRI of the L spine shows DDD with severe central stenosis at L3/4 and noted right L5/S1 stenosis. She complains of solely lower back pain. She continues to deny any LE pain, weakness or tingling. -recommend a to try a L3/4 BALJINDER -pt updated -PT/OT ordered -call with any questions or concerns -d/w Dr Sweeney Subjective: Awake and alert. NAD. Pt with continued lower back pain. No f/c/n/v/d. Objective: AAO x 3, PERRLA/EOMI no droop CN 2-12 grossly intact +lt touch 5/5 BUE/BLE = no T spine pain with percussion. Pt with continued lower back pain with percussion Neuro Check Frequency: per routine Urinary Catheter in Place: No - Physician Discussed Patient with : [facility] Physical Exam - Vitals, I&O, Labs I and O 03/31/17 04/01/17 04/02/17 05:59 05:59 05:59 Intake Total 1470 900 Output Total 200 Balance 1470 700 Intake: Oral (ml) 1470 900 Output: Urine (ml) 200 Bedside Commode 100 Toilet 100 Other: Number of Voids Bedside Commode 3 1 Incontinence 3 2 Toilet 1 1 Number of Stools Incontinence 1 Vital Signs Temp Pulse Resp BP Pulse Ox 36.6 C 76 15 112/62 96 04/01/17 04:00 04/01/17 04:00 04/01/17 04:00 04/01/17 04:00 04/01/17 04:00 ICD10 Worksheet Patient Problems: Problems Problem Status Onset Hematoma of occipital surface of head Acute Multiple falls Acute Syncope Acute
[2017-04-01] MEDS: CEPHALEXIN 500 MG CAP PO SCH (08:58)
[2017-04-01] MEDS: SERTRALINE HCL 25 MG TAB PO SCH (08:58)
[2017-04-01] MEDS: ATORVASTATIN CALCIUM 10 MG TAB PO SCH (08:58)
[2017-04-01 11:21] VITALS: TEMP 98.5
[2017-04-01 12:59] LABS: PLATELET COUNT 179 10^3/uL (150-400)
[2017-04-01] MEDS ORDERED: TRIAMCINOLONE ACETONIDE 200 MG/5 ML MDV IM ONE (14:24)
[2017-04-01] MEDS ORDERED: IOPAMIDOL (ISOVUE-M 300) 15 ML VIAL ONE (14:24)
[2017-04-01] MEDS ORDERED: LIDOCAINE 1% 300 MG/30 ML SDV ONE (14:24)
--- NOTE | 2017-04-01 14:57 | PDIAF ---
- Diagnosis Diagnosis: severe spinal stenosis Code Status: Do Not Resuscitate - Medication Management Discharge Medications: Medications to Continue on Transfer Sertraline HCl [Zoloft 25mg (*)] 25 mg PO DAILY 01/29/17 [Last Taken 03/27/17] Simvastatin [Zocor] 20 mg PO DAILY@17 01/29/17 [Last Taken 03/27/17] Ibuprofen [Motrin (*)] 400 mg PO Q6HRS PRN #20 tab 04/01/17 [Last Taken Unknown] traMADol [Ultram 50 mg (*)] 50 mg PO Q6HRS PRN #20 tab 04/01/17 [Last Taken Unknown] Discharge Medications: Refer to the Discharge Home Medication list for PRN reason. - Orders Services needed: Physical Therapy, Occupational Therapy Diet Recommendation: no restrictions on diet Additional: Possible hypertrophic cardiomyopathy on ECHO - recommend outpatient cardiology follow-up at [place] [facility] Current Providers and Referrals: Patient,NotPresent [Unknown] - As per Instructions
[2017-04-01 16:08] VITALS: BP 134/90; PULSE 78; RESP 14; O2SAT 92
--- NOTE | 2017-04-01 17:42 | ASDISCHSUM ---
Discharge Information Plan Status:SNF Medically Cleared to Leave:03/31/2017 Discharge Date:04/01/2017 05:18 PM CM D/C Disposition:[facility] Facility ADT D/C Disposition:[facility] Facility Projected Discharge Date:03/30/2017 11:00 AM Transportation at D/C:ALS/BLS Discharge Delay Reason: Follow-Up Date:03/30/2017 11:00 AM Discharge Slot: Final Diagnosis: Placement Information Referral Type:*Alf/SNF Referral ID:[id number] Provider Name:[facility]/[employer]. Address 1:[address] Address 2: City:[place] Selection Factors: State:[place] Patient Contact Information Contact Name:TARSHA Relationship:Daughter Address:[address] City:[place] Alternate Phone: State/Zip Code:[place] [address] Email: Financial Information Financial Class:Medicare Advantage Plans Primary Plan Desc:[employer] ADV IP Primary Plan Number:[id number] Secondary Plan Desc: Secondary Plan Number: Assessment Information LACE LACE Acuity / Level of Answers: Yes Care: Did the patient have an inpatient admission? Comorbidities - select Answers: Chronic pulmonary disease all that apply History of falls # of Emergency department Answers: 1-2 visits in the last 6 months Score: 9 Date Signed: 03/28/2017 11:57 AM Electronically Signed By:Tessie Antony RN [facility] CM Progress Note CM Note CM Note Notes: 03/28/2017 Case Management Note Reviewed chart, spoke w/daughter Norma [phone]. PT is recommending SNF rehab, Norma is in agreement. Pt has significant dementia. Called [facility] coordinator at [phone], [facility] recommended the [facility] dedicated to care for dementia patients. Family specifically requested that referals not be sent to [facility] facilities. Faxed referrals to multiple facilities via [employer]. Case Management d/c poc: to SNF pending acceptance. Case Management to follow. Date Signed: 03/28/2017 04:39 PM Electronically Signed By:Lisbeth Kaur RN [facility] CM Progress Note CM Note CM Note Notes: Spoke with RN & MD; anticipate dc tomorrow. Spoke with pt & her son Ulysses regarding dc poc. Discussed pt discharging to SNF vs discharging back to [facility] w/[facility]. Ulysses had several questions about the facilities referrals were sent to; called each facilty to discuss. Spoke with Lisa, at [facility]; bed available tomorrow in their memory care unit; [facility] does PT/OT with their pts daily & are able to check in on their pts every 15 mins; Lisa encouraging this CM to call Scotty ([phone] or [phone]) at [facility] weekend line to get auth for pt; updated Greg. Arora to discuss with his sister Norma before getting auth. Spoke with Teresita at [facility]; [facility] bed available tomorrow w/auth; no memory care unit, but Teresita willing to speak with DON & request a bed for pt near nurse's station w/frequent checks on pt; PT/OT done 3x times daily, if pt can tolerate. Spoke with Tracie, at [facility] [place]; no [facility] beds available until Friday. LVM for Lisbet, at [facility]; awaiting callback. Spoke with [facility] who states they would be able to see pt at [place] & provide max amount of therapy (3x weekly) for pt if [facility] PT order recommends that. Ulysses updated; decision made for pt to dc to [facility]. LVM for Scotty, at [facility], to obtain auth. Alerted Lisa, at [facility]; updates faxed; confirmed received; willing to accept pt if auth is obtained; Lisa to contact [facility] as well. CM will continue to follow. Date Signed: 03/30/2017 02:36 PM Electronically Signed By:Christie Gray RN [facility] CM Progress Note CM Note CM Note Notes: 03/31/2017 Case Management Note Priscilla from [facility] notified case management of approval and authorization from [facility]. Case Management to call Priscilla at [phone] when d/c orders are completed. Case Management d/c poc: To [facility] for rehab when medically stable. Case Management to follow. Date Signed: 03/31/2017 12:14 PM Electronically Signed By:Lisbeth Kaur RN Case Management Discharge Plan Note Case Management Discharge Discharge Order Complete? Answers: Yes Patient to Obtain Answers: Other Notes: [facility] Transportation Arranged Answers: MARGARITO Nieves Transport will Pick (Date 04/01/2017 05:30 PM & Time) Case Management Transport Answers: Yes Notes: [facility] transport completed Form Complete Faxed Final Orders Answers: Yes Agency/Facility Transfer Answers: Yes Report Printed & Faxed to Receiving Agency Family Notified Answers: Yes Notes: per [employer] Comments Notes: 04/01/2017 Case Management Note Notified [facility] of d/c [phone]. Faxed final orders. Arranged transport through [facility] stretcher d/t pt dementia and injection in spine prior to d/c. Family in room. Date Signed: 04/01/2017 05:41 PM Electronically Signed By:Lisbeth Kaur RN Intervention Information Intervention Type:*IM-Signed Date of Service:04/01/2017 03:22 PM Patient Type:Inpatient Staff Member:Courtney Jaramillo Hours: Discipline: Severity: Comment:
--- NOTE | 2017-04-01 18:25 | GDS ---
[f rep st] DISCHARGE SUMMARY DISCHARGE DIAGNOSES: 1. Syncope. 2. 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 3. Severe lumbar spinal stenosis, status post epidural steroid injection. 4. Chronic obstructive pulmonary disease with chronic respiratory failure, on 2 L. 5. Dementia. 6. Urinary tract infection. HISTORY: The patient is an 81-year-old female who presented with a syncopal event. She fell and sub sequently developed severe back pain. She was watched on the monitor without any recurrence of arrhy thmia. Her echocardiogram, however, was concerning for possible hypertrophic cardiomyopathy. She coto s a LVOT gradient at rest, 26 mmHg, and with Valsalva it increased to 121 mmHg. This echo was review ed with Cardiology and they do think she needs further outpatient evaluation. She is, however, a [facility] patient, and Cardiology felt it would be safe for her to discharge to outpatient cardiology evalu ation at [facility]. She will likely need some type of outpatient monitoring that will need to be arrang ed through their system. The patient's family was informed of this result and the need for followup. Through the remainder of her hospitalization, ongoing back pain was her chief complaint. MRI of the lumbar spine did show severe spinal stenosis at L3-L4, as well as a right L5-S1 stenosis. Neurosurge ry was consulted. They reviewed the MRIs and thought she would benefit from an L3-L4 epidural steroi d injection. This was performed in Radiology today, and she is now stabilized [facility] DISCHARGE MEDICATIONS: Please see computerized record for full detailed list. New medications: 1. Tramadol 50 mg every 6 hours as needed. 2. Motrin 400 mg p.o. q.6 hours as needed. She completed a full course of Keflex for a urinary tract infection during this hospitalization. No further antibiotics needed at discharge. ADDITIONAL DISCHARGE INSTRUCTIONS: 1. Possible hypertrophic cardiomyopathy on echocardiogram, recommend outpatient cardiology followup at [facility]. 2. PT/OT to be provided in an ongoing manner at group home facility post discharge. Greater than 30 minutes' time was spent arranging this discharge. Patient was seen and examined by me on day of discharge. /[id number]/MODL
== END 2017-04-01 17:18 | DRG 315 ==
LOC: EDUNIT# → F2W 12:48 → OBSVTOIN 03-29 13:33
PROVIDERS: ADMIT Family Medicine; ATTEND Family Medicine
PROC: 3E0S33Z Introduction of Anti-inflammatory into Epidural Space, Percutaneous Approach (ICD-10-PCS; principal; 2017-04-01)
PROC: 3E0S3BZ Introduction of Anesthetic Agent into Epidural Space, Percutaneous Approach (ICD-10-PCS; principal; 2017-04-01)
DX: I42.2 Other hypertrophic cardiomyopathy (principal); J96.11 Chronic respiratory failure with hypoxia; N39.0 Urinary tract infection, site not specified; S00.83XA Contusion of other part of head, initial encounter; M48.061 Spinal stenosis, lumbar region without neurogenic claudication; R29.6 Repeated falls; J44.9 Chronic obstructive pulmonary disease, unspecified; F03.90 Unspecified dementia, unspecified severity, without behavioral disturbance, psychotic disturbance, mood disturbance, and anxiety; E78.5 Hyperlipidemia, unspecified; W19.XXXA Unspecified fall, initial encounter
CPT/HCPCS: 97116-GP; 97162-GP; 97166-GO; 97530-GO; 97530-GP; 97532-GO; 97535-GO; G0378; G8978-GP-CI; G8979-GP-CJ; J3301; Q9967

== ENCOUNTER 2018-04-22 23:20 | Emergency (ER) | payer OTHER ==
[2018-04-22] MEDS ORDERED: LIDOCAINE HCL 4% TOPICAL SOLN 50ML ONE (23:42)
[2018-04-22] MEDS ORDERED: OXYMETAZOLINE 30 ML NASAL SPRAY ONE (23:42)
[2018-04-22] MEDS ORDERED: SILVER NITRATE APPLICATOR 1 APPL TP ONE (23:42)
--- NOTE | 2018-04-23 01:26 | EDPHY ---
H & P Stated Complaint: nose bleed Time Seen by Provider: 04/22/18 23:39 HPI/ROS: Chief Complaint: Nose bleed HPI: 82-year-old woman with a history of chronic oxygen use the nasal cannula presenting with intermittent nose bleeding for the last 2 days. Bleeding primarily at the right side of her nose. She has been swallowing some blood. No vomiting. No no increasing shortness of breath. No lightheadedness or fainting. No prior history of nosebleeds in the past. She does have a history of dementia. She is in the emergency department with her daughter. ROS: 10 systems were reviewed and were negative except those elements noted in the HPI. Social History: No smoking, no alcohol, no recreational drug use Family History: non-contributory Physical Exam: Gen: Awake, Alert, No Distress HEENT: [Nose: No active bleeding, dried blood from bilateral nares Eyes: PERRLA, EOMI Mouth: Moist mucosa Neck: Supple, no JVD Chest: nontender, lungs clear to auscultation Heart: S1, S2 normal, no murmur Abd: Soft, non-tender, no guarding Back: no CVA tenderness, no midline tenderness Ext: no edema, non-tender Skin: no rash Neuro: CN II-XII intact, Sensation grossly intact, Strength 5/5 in bilateral upper and lower extremities - Personal History Current Tetanus Diphtheria and Acellular Pertussis (TDAP): Yes - Medical/Surgical History Hx Asthma: Yes Hx Chronic Respiratory Disease: Yes Hx Diabetes: No Hx Cardiac Disease: No Hx Renal Disease: No Hx Cirrhosis: No Hx Alcoholism: No Hx HIV/AIDS: No Hx Splenectomy or Spleen Trauma: No Other PMH: asthma, COPD, hyperlipidemia, anxiety, dementia/ [place]ers - Social History Smoking Status: Never smoked Constitutional: Initial Vital Signs Temperature (C) 36.6 C 04/22/18 23:24 Heart Rate 94 04/22/18 23:24 Respiratory Rate 16 04/22/18 23:24 Blood Pressure 142/121 H 04/22/18 23:24 O2 Sat (%) 90 L 04/22/18 23:24 O2 Delivery Mode Room Air O2 (L/minute) 3 Allergies/Adverse Reactions: adhesive Allergy (Verified 04/22/18 23:23) hydrocodone [From Vicodin] Allergy (Verified 04/22/18 23:23) Home Medications: Medication Instructions Recorded Sertraline HCl [Zoloft 25mg (*)] 25 mg PO DAILY 01/29/17 Simvastatin [Zocor] 20 mg PO DAILY@17 01/29/17 Ibuprofen [Motrin (*)] 400 mg PO Q6HRS PRN #20 tab 04/01/17 traMADol [Ultram 50 mg (*)] 50 mg PO Q6HRS PRN #20 tab 04/01/17 Medical Decision Making Procedures: Procedure: Epistaxis control. After verbal consent was obtained, the patient was treated with Chet-Synephrine and topical TXA. A nasal clamp was then placed. After 20 min cyst was removed. After 20 min of observation the patient was re-evaluated.. Following the procedure the patient was re-examined and the bleeding was well controlled. The patient tolerated the procedure well. The procedure was performed by myself. ED Course/Re-evaluation: 82-year-old woman with acute epistaxis. No active bleeding here. She has been treated with Chet-Synephrine and TXA. I have offered silver nitrate cautery but the patient and her daughter would like to hold off at this time. Have recommended humidification through nasal cannula, Vaseline, use of oral oxygen for the next 2 days. She will return for any further bleeding concerns. Follow up as an outpatient. Departure - Departure Disposition: Home, Routine, Self-Care Clinical Impression: Acute anterior epistaxis Condition: Good Instructions: Nosebleed (ED) Additional Instructions: Make sure to get a humidifier for your oxygen. Follow up with primary care physician in 2-3 days for further evaluation. If you're bleeding returns apply the nose clamp for at least 30 min. If bleeding persists return to the emergency department for further evaluation. Referrals: BENITA PINEDA [Primary Care Provider] - As per Instructions
[2018-04-23 02:13] VITALS: BP 93/56
== END 2018-04-23 02:16 | disposition home or self-care (01) ==
LOC: EDUNIT#
PROC: 3E09XGC Introduction of Other Therapeutic Substance into Nose, External Approach (ICD-10-PCS; principal; 2018-04-22)
DX: R04.0 Epistaxis (principal); J44.9 Chronic obstructive pulmonary disease, unspecified; G30.9 Alzheimer's disease, unspecified; F02.80 Dementia in other diseases classified elsewhere, unspecified severity, without behavioral disturbance, psychotic disturbance, mood disturbance, and anxiety; E78.5 Hyperlipidemia, unspecified; F41.9 Anxiety disorder, unspecified; Z99.81 Dependence on supplemental oxygen